=== PATIENT | female | born 1970 | race Caucasian/White ===

== ENCOUNTER 2025-01-19 17:42 | Emergency (ER) | payer BC, OTHER ==
[~2025-01-19] VITALS: Ht 157.5 cm; Wt 53.6 kg
[2025-01-19 18:12] VITALS: BP 113/67; PULSE 75; RESP 19; TEMP 98.1; O2SAT 96
[2025-01-19] MEDS: NEOMYCIN/POLYMYXIN B/HYDROCORT 10 ML OTIC SUSPENSION AD ONE (18:59)
== END 2025-01-19 19:02 | disposition home or self-care (01) ==
LOC: EMS 17:42
DX: H83.8X1 Other specified diseases of right inner ear (principal); Z98.890 Other specified postprocedural states; Z88.1 Allergy status to other antibiotic agents; Z88.2 Allergy status to sulfonamides
CPT/HCPCS: 99282; Z7502; Z7610